=== PATIENT | female | born 1970 | race Two or more races ===

== ENCOUNTER 2021-04-01 09:18 | Emergency (ER) | payer OTHER ==
[~2021-04-01] VITALS: Ht 165.1 cm; Wt 74.8 kg
[2021-04-01 09:48] VITALS: BP 99/64
== END 2021-04-01 09:57 | disposition home or self-care (01) ==
LOC: EDH 09:18
DX: S51.851D Open bite of right forearm, subsequent encounter (principal); Z88.0 Allergy status to penicillin; W54.0XXD Bitten by dog, subsequent encounter
CPT/HCPCS: 99281